=== PATIENT | female | born 1985 | race African-American/Black ===

== ENCOUNTER → 2019-01-21 | Outpatient (CLI) | payer MEDICAID ==
--- NOTE | 2019-01-21 15:46 | RADIOLOGY REPORT (SQ) ---
EXAM DESCRIPTION: MRI HEAD COMBO COMPLETED DATE/TIME: 01/21/2019 12:41 pm REASON FOR STUDY: (R20.2)PARESTHESIA OF SKIN Z82.0 FAMILY HISTORY OF EPILEPSY AND OTH DIS OF THE NE RVOUS R20.0 ANESTHESIA OF SKIN R20.2 PARESTHESIA OF SKIN COMPARISON: None. TECHNIQUE: Multiplanar imaging includes noncontrasted T1, T2, FLAIR, diffusion with ADC map and post gadolinium contrast T1 sequences. Images stored on PACS. CONTRAST TYPE AND DOSE: 20 mL Dotarem. RENAL FUNCTION: Not indicated. ACR Type II contrast agent associated with few, if any, unconfounded cases of NSF LIMITATIONS: None. FINDINGS: ANATOMY: No anomalies. Normal vascular flow voids. Pituitary fossa normal. CSF SPACES: Normal in size and contour. No hemorrhage. CEREBRUM: Sulci and gyri normal in size and contour. Normal white matter signal on FLAIR imaging. No evidence of hemorrhage, mass, or extraaxial fluid collection. No abnormal enhancement post contrast. POSTERIOR FOSSA: No signal alteration. No hemorrhage. No edema, masses, or mass effect. Internal edith tory canals, cerebellopontine angles, mastoids normal. No enhancing lesions. No abnormal enhancement post contrast. DIFFUSION IMAGING: Negative for acute or subacute infarction. ORBITS: No masses. Globes normal. PARANASAL SINUSES: No fluid levels. Mucosa normal. OTHER: No other significant finding. IMPRESSION: NORMAL MRI OF THE BRAIN WITHOUT AND WITH INTRAVENOUS GADOLINIUM CONTRAST. EVIDENCE OF ACUTE STROKE: NO. TECHNICAL DOCUMENTATION: JOB ID: [id number] [employer]- All Rights Reserved Reading location - IP/workstation name: [email or web address]
== END ==
LOC: RAD 11:55
PROVIDERS: ATTEND Physician Assistant
DX: R20.0 Anesthesia of skin (principal); R20.2 Paresthesia of skin; Z82.0 Family history of epilepsy and other diseases of the nervous system
CPT/HCPCS: 70553; A9576